=== PATIENT | female | born 1985 | race Native Hawaiian/Other Pacific Islander ===

== ENCOUNTER 2019-01-21 06:41 | Inpatient (IN) | payer OTHER ==
[2019-01-17 10:02] VITALS: BMI 23.1
[2019-01-21 07:52] LABS: BASO # 0.1 K/uL (0.0-0.2); BASO % 1.5 % (0.0-2.0); EOS # 0.2 K/uL (0.0-0.7); EOS % 3.8 % (0.0-4.0); LYMPH # 2.4 K/uL (1.0-4.3); LYMPH % 44.8 % (20.0-40.0); MEAN CELL VOLUME 57.6 fl (81.0-99.0); MEAN CORPUSCULAR HEMOGLOBIN 16.9 pg (27.0-31.0); MEAN CORPUSCULAR HGB CONC 29.4 g/dL (33.0-37.0); MEAN PLATELET VOLUME 8.5 fl (7.2-11.7); MONO # 0.3 K/uL (0.0-0.8); MONO % 5.8 % (0.0-10.0); NEUT # 2.4 K/uL (1.8-7.0); NEUT % 44.1 % (50.0-75.0); NRBC % 0.2 % (0.0-0.0); RBC 3.71 Mil/uL (3.80-5.20); RED CELL DISTRIBUTION WIDTH 18.9 % (11.5-14.5); WHITE BLOOD COUNT 5.3 K/uL (4.8-10.8)
[2019-01-21] MEDS ORDERED: Lactated Ringer's 1,000 ML IV ONE (08:30)
[2019-01-21] MEDS ORDERED: Lidocaine 4% (Laryng-O-Jet) Kit MM ONE (08:56)
[2019-01-21] MEDS ORDERED: Propofol 10 mg/ml Inj (20 ML) ONE (08:56)
[2019-01-21] MEDS ORDERED: Midazolam 2 MG/2 ML VIAL ONE (08:56)
[2019-01-21] MEDS ORDERED: Lidocaine 1% 5ml Abboject ONE (08:56)
[2019-01-21] MEDS ORDERED: Rocuronium 10 mg/ml (5 ml) ONE (08:56)
[2019-01-21] MEDS ORDERED: Vasopressin 20 Units/ml Inj ONE (09:39)
[2019-01-21] MEDS ORDERED: Vasopressin 20 Units/ml Inj IV ONE (09:45)
[2019-01-21 10:08] LABS: HEMOGLOBIN 6.3 g/dL (12.0-16.0)
[2019-01-21] MEDS ORDERED: Neostigmine 1:1000 (1 mg/ml) Inj ONE (10:10)
[2019-01-21] MEDS ORDERED: Acetaminophen IV 1,000 MG in IV SUPPLIES 0 ML IVPB ONE (10:15)
[2019-01-21] MEDS ORDERED: Absorbable Gelatin Sponge Size 12-7 ONE (10:23)
[2019-01-21] MEDS ORDERED: Absorbable Gelatin Sponge Size 12-7 TP ONE (10:39)
[2019-01-21] MEDS ORDERED: Bupivacaine 0.25%-Epinephrine 1:200,000 (30 ml) Inj ONE (10:49)
--- NOTE | 2019-01-21 11:42 | PCM.ANESB5 ---
Transverse Abdominis Block - Transverse Abdominis Plane Date of Procedure: 01/21/19 Anesthesiologist: Buster Cantrell Pre-Procedure Diagnosis: Uterine fibroid Post-Procedure Diagnosis: Same Procedure Performed: Transverse Abdominis Plane Nerve Block Left, Transverse Abdominis Plane Nerve Block Right (Bilateral) - Procedure Transverse Abdominis Plane Nerve Block: The procedure was explained to the patient that it is for post-operative pain management and would be performed after surgery. Consent was obtained prior to surgery after a thorough discussion with the patient regarding the benefits and possible complications of transverse abdominis plane block. After the surgery had concluded and before the patient emerged from general anesthesia, time-out was held with the circulating nurse to re-confirm the appropriate block. With the patient in supine position, the ultrasound probe was placed transverse to the abdominal wall at the mid-axillary line above the iliac crest of the appropriate side. The skin, subcutaneous tissue, fat, external oblique muscle, internal oblique muscle, and the transverse abdominis muscle were identified. The general area of the block site was then prepped with Chloraprep three times. At this point, a # 21-gauge Stimuplex 4-inch needle was inserted posterior to and in plane with the ultrasound probe and directed anteriorly. Needle was adv anced under direct ultrasound visualization until it reached the plane between the internal oblique and transverse abdominis muscles. After appropriate placement, 2mL of local anesthetic solution was injected. When the transverse abdominis plane was observed expanding in an ellipsoid way, the rest of the solution was slowly injected. A total of __30____ mL of _0.25____ % bupivacaine with 1:[id number] epinephrine was used for this block. The needle was then removed and sterile dressing was applied. Similarly, the same procedure was performed on the other side using the same medications. Total of 60mL 0.25% bupivacaine with [id number] epinephrine was used. The patient had stable vital signs throughout and had no complications after emergence from general anesthesia in the recovery room.
[2019-01-21] MEDS: HYDROmorphone 0.5 mg/0.5 ml ISec IVP PRN ×3 (12:10→12:30)
[2019-01-21] MEDS ORDERED: Lactated Ringer's 1,000 ML IV SCH (15:00)
[2019-01-21 18:48] LABS: HEMOGLOBIN 8.2 g/dL (12.0-16.0); MEAN CELL VOLUME 65.5 fl (81.0-99.0); MEAN CORPUSCULAR HEMOGLOBIN 20.3 pg (27.0-31.0); MEAN CORPUSCULAR HGB CONC 30.9 g/dL (33.0-37.0); RBC 4.04 Mil/uL (3.80-5.20); RED CELL DISTRIBUTION WIDTH 28.5 % (11.5-14.5); WHITE BLOOD COUNT 13.7 K/uL (4.8-10.8)
[2019-01-21] MEDS: Lactated Ringer's 1,000 ML IV SCH (22:43)
[2019-01-22] MEDS: Lactated Ringer's 1,000 ML IV SCH ×3 (04:07→18:04)
[2019-01-22 06:00] LABS: HEMOGLOBIN 7.6 g/dL (12.0-16.0); MEAN CELL VOLUME 65.3 fl (81.0-99.0); MEAN CORPUSCULAR HEMOGLOBIN 19.9 pg (27.0-31.0); MEAN CORPUSCULAR HGB CONC 30.5 g/dL (33.0-37.0); RBC 3.81 Mil/uL (3.80-5.20); RED CELL DISTRIBUTION WIDTH 28.3 % (11.5-14.5)
[2019-01-22] MEDS: Oxycodone/Acetaminophen 5/325 mg Tab PO PRN ×2 (14:57→22:34)
[2019-01-22 16:27] VITALS: RESP 20
[2019-01-22] MEDS ORDERED: Simethicone 80 mg Chewtab PO PRN (23:19)
[2019-01-23 09:09] VITALS: BP 105/67
--- NOTE | 2019-01-23 10:32 | CP.SDSHP ---
Same Day Surgery H & P - Allergies Allergies: Allergies No Known Allergies Allergy (Verified 01/17/19 10:02) - Physical Exam Vital Signs: Vital Signs 01/23/19 01/23/19 05:00 08:20 Temperature 100.1 F H 99.5 F Pulse Rate 88 80 Respiratory 20 20 Rate Blood Pressure 105/61 105/67 O2 Sat by Pulse 97 100 Oximetry Short Stay Discharge - Short Stay Discharge Admitting Diagnosis/Reason for Visit: D21.9/ N92.0/ R10.2/ Progress Note/Discharge Note with Instructions: Patient doing well ambulating tolerating diet pain well controlled Vital signs stable afebrile Incision clean dry intact No Homans Postoperative day #2 Patient cleared for discharge No heavy lifting Nothing per vagina Follow-up with Dr. Washington in 1 week Prescriptions provided
[2019-01-23 13:10] VITALS: PULSE 89; TEMP 99.4; O2SAT 100
--- NOTE | 2019-01-31 00:31 | OP ---
PROCEDURE DATE: 01/30/2019 PREOPERATIVE DIAGNOSES: Symptomatic fibroid uterus, pelvic pressure, pain, blood loss anemia. SURGEON: Yadira Washington MD DIRECTOR LONG TERM CARE: Heather Medina MD. She was helpful in creating exposure, obtaining hemostasis, and closure of the patient. The procedure would not have been possible without her assistance. ANESTHESIA: General. ANESTHESIA ADMINISTERED BY: Gerber Moreno MD ESTIMATED BLOOD LOSS: 750 mL. INTRAVENOUS FLUID INTAKE: The patient received approximately 2 L of crystalloid 250 mL from cell saver and 2 units of packed blood cells intraoperatively. PROCEDURES: Laparotomy, myomectomy. COMPLICATIONS: There were no complications. DESCRIPTION OF PROCEDURE: After informed consent was obtained, the patient was taken to the operating room where she was given general anesthesia. She was then prepped and draped in a normal sterile fashion. A Pfannenstiel skin incision was then made with a scalpel, carried down to the underlying layer of fascia. The fascia was nicked in the midline and the fascial incision was then extended laterally with curved Rowland scissors. The superior aspect of the fascial incision was then grasped with William clamps, elevated up, and the rectus muscles were using both sharp and blunt dissection. Attention was then turned to the inferior aspect of the fascial incision which in similar fashion was grasped with William clamps, elevated up and the rectus muscles were using both sharp and blunt dissection. The rectus muscle were then in the midline. The peritoneum was identified and entered sharply with Metzenbaum scissors. Peritoneal incision was then extended superiorly and inferiorly until good visualization of the bladder. The abdomen was explored. There was a large predominant 10 cm fundal myoma. There was a 5 cm anterior myoma and then on inspection of the posterior aspect of the uterus, there were two large approximately 4 cm posterior fibroids. The uterus was brought up through the incision. Attention was then turned to the fundal myoma. Pitressin was injected. An incision was made with the Bovie catheter. The fibroid was identified, grasped with a clamp and the fibroid was enucleated using both sharp and blunt dissection. The uterine defect was then repaired. The myometrium was closed with 0 Vicryl in a running fashion. The serosa was closed with 0 Vicryl in a running fashion and hemostasis was noted. Attention was then turned to the anterior fibroid which in similar fashion was injected with Pitressin, scored with Bovie, grasped with a tenaculum and enucleated using both sharp and blunt dissection. Uterine defect was then repaired with 0 Vicryl in a running fashion. Attention was then turned to the posterior aspect of the uterus which in similar fashion the fibroids were scored with the Bovie, grasped with the tenaculum and enucleated using both sharp and blunt dissection. Uterine defect was repaired using a series of sutures, the myometrium was closed with 0 Vicryl in a running fashion. The serosa was closed with 2-0 Vicryl in a running fashion. Several small subserosal fibers were identified, grasped with Allis clamps and excised with the Bovie. Hemostasis was obtained using the cautery. All specimens were sent to pathology. The uterus was then returned to the abdomen. Interceed was placed on the uterus. One piece of Gelfoam was placed along the large uterine defect. The uterus was examined and noted to be hemostatic. The peritoneum was then closed with 2-0 Vicryl in a running fashion. The muscle was reapproximated with 0 Vicryl in an interrupted fashion. The fascia was closed with 0 Vicryl in a running fashion and the skin was closed with 3-0 on Fito needle. All sponge, lap, needle, and instrument counts were correct x2, and the patient was taken to the recovery room in awake and stable condition. Yadira Washington MD
--- NOTE | 2019-02-05 15:55 | PQF ---
PROVIDER RESPONSE TEXT: Patient presented to the hospital for the treatment of symptomatic fibroid uterus. Patient was schedu led for a myomectomy and on admission her hemoglobin was noted to be 6.3. The most common cause would be secondary to chronic blood loss REVIEWER QUERY TEXT: Anemia Type Blood loss anemia is documented in the Medical Record. Please specify acuity: Such as: -- Due to acute blood loss -- Due to chronic blood loss -- Due to iron deficiency -- Due to postoperative blood loss -- Due to chronic disease -- Other, please specify The patient's Clinical Indicators include: Operative report documented "blood loss anemia." Query created by: Marysol Moeller on 01/31/2019 4:52 PM Electronically signed by: Yadira Washington MD 02/05/2019 3:53 PM
== END 2019-01-23 13:30 | disposition home or self-care (01) | DRG 743 ==
LOC: H.OPSURG 06:41 → H.PEDS 11:26
PROVIDERS: ADMIT Obstetrics & Gynecology Gynecology; ATTEND Obstetrics & Gynecology Gynecology
PROC: 3E0P05Z Introduction of Adhesion Barrier into Female Reproductive, Open Approach (ICD-10-PCS; 2019-01-21)
PROC: 30233N1 Transfusion of Nonautologous Red Blood Cells into Peripheral Vein, Percutaneous Approach (ICD-10-PCS; 2019-01-21)
PROC: 3E0T3BZ Introduction of Anesthetic Agent into Peripheral Nerves and Plexi, Percutaneous Approach (ICD-10-PCS; principal; 2019-01-21 08:45)
PROC: 0UB90ZZ Excision of Uterus, Open Approach (ICD-10-PCS; 2019-01-21 08:45)
DX: D25.9 Leiomyoma of uterus, unspecified (principal); N92.0 Excessive and frequent menstruation with regular cycle; D50.0 Iron deficiency anemia secondary to blood loss (chronic)